=== PATIENT | male | born 1950 | race Caucasian/White ===

== ENCOUNTER 2018-05-13 08:29 | Emergency (ER) | payer MEDICARE ==
[2018-05-13] MEDS ORDERED: LIDOCAINE 2% JELLY 10ML IN APPLICATOR. MM ONE (08:45)
--- NOTE | 2018-05-13 08:55 | PHYS DOC ---
Past History Past Medical History: CAD, COPD, CVA, Hypertension Smoking: Quit Greater Than 1 Year Alcohol Use: None Drug Use: None Adult General Chief Complaint Chief Complaint: URINE CATHETER PROBLEM HPI HPI Patient is a 67-year-old male who presents with difficulty self catheterizing and pelvic pain. Patient self catheterizes due to prior history of CVA. He was able to catheterize last evening but has been unable to pass the catheter at this morning. Patient is concerned about possibility of a blood clot in the bladder obstructing the catheter since this is happened to him before. Reports the pain is a feeling of fullness. Moderate in intensity but getting worse over time. Patient denies any fevers. Denies any hematuria last night with his last catheterization attempt.[] Review of Systems Review of Systems Constitutional: Denies fever or chills [] Eyes: Denies change in visual acuity, redness, or eye pain [] HENT: Denies nasal congestion or sore throat [] Respiratory: Denies cough or shortness of breath [] Cardiovascular: No chest pain or palpitations[] GI: Denies abdominal pain, nausea, vomiting, bloody stools or diarrhea [] : See history of present illness[] Musculoskeletal: Denies back pain or joint pain [] Integument: Denies rash or skin lesions [] Neurologic: Denies headache, focal weakness or sensory changes [] Endocrine: Denies polyuria or polydipsia [] All other systems were reviewed and found to be within normal limits, except as documented in this note. Current Medications Current Medications Current Medications Medications (Trade) Dose Ordered Sig/Em Start Time Stop Time Status Last Admin Dose Admin Lidocaine HCl (Uro-Jet) 1 ac 1X ONCE 05/13/18 08:45 05/13/18 08:46 Allergies Allergies Allergies Coded Allergies Type Severity Reaction Last Updated Verified No Known Drug Allergies 05/13/18 No Physical Exam Physical Exam Constitutional: Well developed, well nourished, no acute distress, non-toxic appearance. [] HENT: Normocephalic, atraumatic, bilateral external ears normal, oropharynx moist, no oral exudates, nose normal. [] Eyes: PERRLA, EOMI, conjunctiva normal, no discharge. [] Neck: Normal range of motion, no tenderness, supple, no stridor. [] Cardiovascular:Heart rate regular rhythm, no murmur [] Lungs & Thorax: Bilateral breath sounds clear to auscultation [] Abdomen: Bowel sounds normal, soft, no tenderness, no masses, no pulsatile masses. exam: Normal male, bilateral descended testes, no blood at the meatus[] Skin: Warm, dry, no erythema, no rash. [] Back: No tenderness, no CVA tenderness. [] Extremities: No tenderness, no cyanosis, no clubbing, ROM intact, no edema. [] Neurologic: Alert and oriented X 3, right-sided weakness is noted. Patient reports that this is unchanged from his usual baseline. [] Psychologic: Affect normal, judgement normal, mood normal. [] EKG EKG [] Radiology/Procedures Radiology/Procedures [] Course & Med Decision Making Course & Med Decision Making Pertinent Labs and Imaging studies reviewed. (See chart for details) ED course: Patient arrived, was placed in bed, in tolerated exam well. Patient had a urinary catheter placed with diuresis of approximately 1 L of urine. Patient reported feeling much better after the catheter was placed. Due to what appears to be a urinary tract infection, patient was given initial dose of antibiotics and prescribed outpatient therapy. Do not believe this patient has pyelonephritis. Patient is nontoxic in appearance. We will discharge him with the urinary catheter in place to follow up with his primary care physician in the next couple of days.[] Dragon Disclaimer Dragon Disclaimer This electronic medical record was generated, in whole or in part, using a voice recognition dictation system. Departure Departure: Impression: Primary Impression: Urinary (tract) obstruction Additional Impression: Urinary tract infection Disposition: 01 HOME, SELF-CARE Condition: IMPROVED Patient Instructions: [place] Catheter Care, Adult, Urinary Retention, Acute, Male, Urinary Tract Infection Additional Instructions: Follow-up with your regular doctor in 2 days. If you do not have a regular doctor, a list of local clinics will be provided for you. Return to the ER if worsening pain, you develop a fever of more than 101, or any other concerns. Scripts Tamsulosin Hcl (FLOMAX) 0.4 Mg Cap.er.24h 0.4 MG PO HS for URINARY OBSTRUCTION for 10 Days, #10 CAP.SR Prov: WILLY LANCASTER DO 05/13/18 Cephalexin (KEFLEX) 500 Mg Capsule 500 MG PO TID for UTI for 10 Days, #30 CAP Prov: WILLY LANCASTER DO 05/13/18 Problem Qualifiers Additional Impression: Urinary tract infection Urinary tract infection type: site unspecified Hematuria presence: with hematuria Qualified Codes: N39.0 - Urinary tract infection, site not specified ; R31.9 - Hematuria, unspecified WILLY LANCASTER DO May 13, 2018 08:55
[2018-05-13 09:28] LABS: BACTERIA,URINE MANY /HPF (0-FEW); BILIRUBIN,URINE NEG (NEG); CLARITY,URINE CLOUDY; COLOR,URINE YELLOW; GLUCOSE,URINE NEG (NEG); NITRITE,URINE POS (NEG); RBC,URINE 20-40 /HPF (0-2); SQUAMOUS EPITHELIAL CELL,UR OCC /LPF; UROBILINOGEN,URINE 0.2 mg/dL (0.2 mg/dL)
[2018-05-13] MEDS ORDERED: CEPH-264 PO (09:39)
[2018-05-13] MEDS ORDERED: TAMS0.4C97 PO (09:39)
[2018-05-13] MEDS ORDERED: CEPHALEXIN 250 MG CAPSULE PO ONE (09:45)
[2018-05-13 10:39] VITALS: BP 165/101
== END 2018-05-13 11:17 | disposition home or self-care (01) ==
LOC: ER 08:29
DX: N13.9 Obstructive and reflux uropathy, unspecified (principal); N39.0 Urinary tract infection, site not specified; R31.9 Hematuria, unspecified; I25.10 Atherosclerotic heart disease of native coronary artery without angina pectoris; J44.9 Chronic obstructive pulmonary disease, unspecified; I10 Essential (primary) hypertension; Z86.73 Personal history of transient ischemic attack (TIA), and cerebral infarction without residual deficits; Z87.891 Personal history of nicotine dependence
CPT/HCPCS: 51702; 81001; 87086; 99284

== ENCOUNTER 2018-09-01 08:49 | Inpatient (IN) | payer MEDICARE ==
[~2018-09-01] VITALS: Ht 167.6 cm; Wt 120.7 kg
[~2018-09-01 08:49] MED LIST: CEPH-264 PO; TAMS0.4C97 PO
[2018-09-01] MEDS ORDERED: 0.9 % SODIUM CHLORIDE 10 ML DISP.SYRIN. IV PRN (09:00)
[2018-09-01] MEDS ORDERED: PIPERACILLIN/TAZOBACTAM 4.5 GM in IV NORMAL SALINE 50ML 50 ML IV ONE (09:00)
[2018-09-01] MEDS ORDERED: IV NORMAL SALINE 1,000ML 1,000 ML IV ONE (09:00)
[2018-09-01] MEDS ORDERED: ACETAMINOPHEN 500 MG TABLET PO ONE (09:30)
--- NOTE | 2018-09-01 09:32 | RAD ---
AP portable chest radiograph 09/01/2018 Clinical History: Cough and fever. An AP erect portable digital radiograph of the chest was obtained. No previous studies are available for comparison. The cardiac silhouette is borderline enlarged. The thoracic aorta is tortuous. Atherosclerotic calcification of the thoracic aorta is seen. No acute pulmonary infiltrate is seen. No pleural effusion or pneumothorax is noted. Degenerative changes are seen involving the thoracic spine. IMPRESSION: No acute abnormality is seen. Electronically signed by: Ronaldo Wallace MD (09/01/2018 9:29 AM) [id number]
[2018-09-01] MEDS ORDERED: IV NORMAL SALINE 50ML 50 ML ONE (09:33)
[2018-09-01] MEDS ORDERED: PIPERACILLIN/TAZOBACTAM 4.5 GM VIAL IV ONE (09:33)
[2018-09-01 09:38] LABS: BACTERIA,URINE FEW /HPF (0-FEW); BILIRUBIN,URINE NEG (NEG); CLARITY,URINE HAZY; COLOR,URINE YELLOW; GLUCOSE,URINE NEG (NEG); NITRITE,URINE NEG (NEG); RBC,URINE >40 /HPF (0-2); UROBILINOGEN,URINE 0.2 mg/dL (0.2 mg/dL)
[2018-09-01 09:46] LABS: BASO % 0 % (0-3); EOS # 1.1 x10^3/uL (0.0-0.7); EOS % 12 % (0-3); HEMATOCRIT 46.7 % (39.0-53.0); HEMOGLOBIN 15.7 g/dL (13.0-17.5); LYMPH # 0.3 x10^3/uL (1.0-4.8); LYMPH % 4 % (24-48); MEAN CORPUSCULAR HEMOGLOBIN 30 pg (25-35); MEAN CORPUSCULAR HGB CONC 34 g/dL (31-37); MEAN CORPUSCULAR VOLUME 90 fL (79-100); MONO # 0.5 x10^3/uL (0.0-1.1); MONO % 6 % (0-9); NEUT # 7.1 x10^3uL (1.8-7.7); NEUT % 78 % (31-73); PLATELET COUNT 173 x10^3/uL (140-400); RED BLOOD COUNT 5.16 x10^6/uL (4.30-5.70); RED CELL DISTRIBUTION WIDTH 14.3 % (11.5-14.5); WHITE BLOOD COUNT 9.1 x10^3/uL (4.0-11.0)
[2018-09-01 09:57] LABS: ALBUMIN 3.7 g/dL (3.4-5.0); ALBUMIN/GLOBULIN RATIO 0.9 (1.0-1.7); CALCIUM 9.1 mg/dL (8.5-10.1); GFR 74.5; POTASSIUM 3.4 mmol/L (3.5-5.1); TOTAL BILIRUBIN 0.7 mg/dL (0.2-1.0)
[2018-09-01] MEDS ORDERED: VANCOMYCIN PER PHARMACY MC ONE (10:00)
--- NOTE | 2018-09-01 10:04 | PHYS DOC ---
Past History Past Medical History: CAD, COPD, CVA, Hypertension Past Surgical History: Other Smoking: Quit Greater Than 1 Year Alcohol Use: None Drug Use: None Adult General Chief Complaint Chief Complaint: URINE CATHETER PROBLEM HPI HPI Patient is a 68-year-old male presents initially with urinary catheter problems. Patient reported discomfort with his urinary catheter so was taken out today. His home health aide was unable to replace it. He was brought here by EMS who said his heart rate was in the 60s. Patient denies any other complaints. He reported getting relief from the discomfort when the catheter was removed.[] Review of Systems Review of Systems Constitutional: Denies fever or chills [] Eyes: Denies change in visual acuity, redness, or eye pain [] HENT: Denies nasal congestion or sore throat [] Respiratory: Denies cough or shortness of breath [] Cardiovascular: No chest pain or palpitations[] GI: Denies abdominal pain, nausea, vomiting, bloody stools or diarrhea [] : Denies dysuria or hematuria, see history of present illness [] Musculoskeletal: Denies back pain or joint pain [] Integument: Denies rash or skin lesions [] Neurologic: Denies headache, focal weakness or sensory changes [] Endocrine: Denies polyuria or polydipsia [] All other systems were reviewed and found to be within normal limits, except as documented in this note. Current Medications Current Medications Current Medications Medications (Trade) Dose Ordered Sig/Em Start Time Stop Time Status Last Admin Dose Admin Acetaminophen (Tylenol) 500 mg 1X ONCE 09/01/18 09:30 09/01/18 09:31 DC 09/01/18 09:56 500 MG Piperacillin Sod/ Tazobactam Sod (Zosyn) 4.5 gm STK-MED ONCE 09/01/18 09:33 09/01/18 09:34 DC Piperacillin Sod/ Tazobactam Sod 4.5 gm/Sodium Chloride 50 ml @ 100 mls/hr 1X ONCE 09/01/18 09:00 09/01/18 09:29 DC 09/01/18 09:56 100 MLS/HR Sodium Chloride 50 ml @ As Directed STK-MED ONCE 09/01/18 09:33 09/01/18 09:34 DC Sodium Chloride (Normal Saline Flush) 10 ml QSHIFT PRN 09/01/18 09:00 Vancomycin HCl (Vanco Per Pharmacy) 1 each 1X ONCE 09/01/18 10:00 09/01/18 10:01 UNV Allergies Allergies Allergies Coded Allergies Type Severity Reaction Last Updated Verified No Known Drug Allergies 05/13/18 No Physical Exam Physical Exam Constitutional: Well developed, well nourished, no acute distress, non-toxic appearance. [] HENT: Normocephalic, atraumatic, bilateral external ears normal, oropharynx moist, no oral exudates, nose normal. [] Eyes: Nonresponsive right pupil, patient reports that this has been since his previous stroke, EOMI, conjunctiva normal, no discharge. [] Neck: Normal range of motion, no tenderness, supple, no stridor. [] Cardiovascular:Heart rate is tachycardic with a regular rhythm, no murmur [] Lungs & Thorax: Bilateral breath sounds clear to auscultation [] Abdomen: Bowel sounds normal, soft, no tenderness, no masses, no pulsatile masses. [] Skin: Skin breakdown present on his posterior thighs and in the groin, mild, no testicular swelling, no evidence of 40 nasal gangrene. [] Back: No tenderness, no CVA tenderness. [] Extremities: No tenderness, no cyanosis, no clubbing, ROM intact, no edema. [] Neurologic: Alert and oriented X 3, right upper extremity and lower extremity weakness consistent with his previous stroke history. [] Psychologic: Affect normal, judgement normal, mood normal. [] Current Patient Data Lab Results Laboratory Tests Test 09/01/18 09:00 09/01/18 09:27 Urine Collection Type U cath Urine Color Yellow Urine Clarity Hazy Urine pH 7.0 Urine Specific [place] 1.020 Urine Protein 100 mg/dl (NEG-TRACE) Urine Glucose (UA) Neg mg/dL (NEG) Urine Ketones (Stick) Neg mg/dL (NEG) Urine Blood Small (NEG) Urine Nitrite Neg (NEG) Urine Bilirubin Neg (NEG) Urine Urobilinogen Dipstick 0.2 mg/dL (0.2 mg/dL) Urine Leukocyte Esterase Neg (NEG) Urine RBC >40 /HPF (0-2) Urine WBC 1-4 /HPF (0-4) Urine Squamous Epithelial Cells None /LPF Urine Bacteria Few /HPF (0-FEW) White Blood Count 9.1 x10^3/uL (4.0-11.0) Red Blood Count 5.16 x10^6/uL (4.30-5.70) Hemoglobin 15.7 g/dL (13.0-17.5) Hematocrit 46.7 % (39.0-53.0) Mean Corpuscular Volume 90 fL (79-100) Mean Corpuscular Hemoglobin 30 pg (25-35) Mean Corpuscular Hemoglobin Concent 34 g/dL (31-37) Red Cell Distribution Width 14.3 % (11.5-14.5) Platelet Count 173 x10^3/uL (140-400) Neutrophils (%) (Auto) 78 % (31-73) H Lymphocytes (%) (Auto) 4 % (24-48) L Monocytes (%) (Auto) 6 % (0-9) Eosinophils (%) (Auto) 12 % (0-3) H Basophils (%) (Auto) 0 % (0-3) Neutrophils # (Auto) 7.1 x10^3uL (1.8-7.7) Lymphocytes # (Auto) 0.3 x10^3/uL (1.0-4.8) L Monocytes # (Auto) 0.5 x10^3/uL (0.0-1.1) Eosinophils # (Auto) 1.1 x10^3/uL (0.0-0.7) H Basophils # (Auto) 0.0 x10^3/uL (0.0-0.2) Prothrombin Time 11.6 SEC (9.4-11.4) H Prothrombin Time INR 1.2 (0.9-1.1) H PTT 32 SEC (23-33) EKG EKG EKG shows a sinus tachycardia at 112 bpm, left axis at -83, QTC 479 ms, nonspecific intraventricular block is present. No old EKG is available for comparison. Interpreted by me at 0911[] Radiology/Procedures Radiology/Procedures AP portable chest radiograph 09/01/2018 Clinical History: Cough and fever. An AP erect portable digital radiograph of the chest was obtained. No previous studies are available for comparison. The cardiac silhouette is borderline enlarged. The thoracic aorta is tortuous. Atherosclerotic calcification of the thoracic aorta is seen. No acute pulmonary infiltrate is seen. No pleural effusion or pneumothorax is noted. Degenerative changes are seen involving the thoracic spine. IMPRESSION: No acute abnormality is seen.[] Course & Med Decision Making Course & Med Decision Making Pertinent Labs and Imaging studies reviewed. (See chart for details) ED course: Patient arrived, was placed in bed, in tolerated exam well. He was noted to be febrile. Sepsis alert was started. Patient's temperature and heart rate improved with antipyretics and IV fluids. Elevated troponin was noted. He was given aspirin for this. Consultation was made with the hospitalist for admission and he graciously admitted. Additional consultation was made with cardiology who believe that this is more of a stress reaction for the troponin elevation rather than an acute coronary syndrome. Medical decision making: Patient with an acute febrile illness. No evidence of pneumonia, no Annette's gangrene. Possible skin source given his skin breakdown but no significant decubitus ulcer. No evidence of this being pyelonephritis.[] Dragon Disclaimer Dragon Disclaimer This electronic medical record was generated, in whole or in part, using a voice recognition dictation system. Departure Departure: Impression: Primary Impression: Acute febrile illness Additional Impressions: Elevated troponin level Elevated brain natriuretic peptide (BNP) level History of CVA (cerebrovascular accident) without residual deficits Skin breakdown Disposition: ADMITTED INPATIENT Admitting Physician: Hung Martin Condition: IMPROVED Referrals: PCP,NO (PCP) Problem Qualifiers WILLY LANCASTER DO Sep 01, 2018 10:04
[2018-09-01] MEDS ORDERED: VANCOMYCIN 1 GM VIAL. ONE ×2 (10:30→10:31)
[2018-09-01] MEDS ORDERED: VANCOMYCIN 2 GM in IV NORMAL SALINE 500ML 500 ML IV ONE (10:30)
[2018-09-01] MEDS ORDERED: ASPIRIN 81 MG TAB.CHEW PO ONE (10:30)
[2018-09-01] MEDS ORDERED: IV NORMAL SALINE 500ML 500 ML ONE (10:30)
[2018-09-01] MEDS ORDERED: IV NORMAL SALINE 1,000ML 1,000 ML IV SCH (11:05)
[2018-09-01] MEDS ORDERED: ONDANSETRON PF 4 MG/2 ML VIAL. IV PRN (11:15)
[2018-09-01 13:43] VITALS: BP 173/92
[2018-09-01 14:37] VITALS: BP 165/75
--- NOTE | 2018-09-01 16:22 | CARD ---
MR#: [id number] Date of Study: 09/01/2018 Ordering Physician: WILYL LANCASTER, Referring Physician: PINO SANTIAGO, Tech: Zofia Kumar APPROVED REPORT EXAM: Two-dimensional and M-mode echocardiogram with Doppler and color Doppler. Other Information Quality : FairHR: 75bpm Technically limited study due to body habitus and COPD INDICATION CVA/TIA CAD Elevated Troponin RISK FACTORS Hypertension Hyperlipidemia 2D DIMENSIONS RVDd3.2 (2.9-3.5cm)Left Atrium(2D)4.0 (1.6-4.0cm) IVSd1.3 (0.7-1.1cm)Aortic Root(2D)3.3 (2.0-3.7cm) LVDd6.1 (3.9-5.9cm)LVOT Diameter2.1 (1.8-2.4cm) PWd1.4 (0.7-1.1cm)LVDs3.5 (2.5-4.0cm) FS (%) 42.0 %SV134.9 ml Aortic Valve AoV Peak Bob.99.1cm/sAoV VTI21.8cm AO Peak GR.3.9mmHgLVOT Peak Bob.103.2cm/s LVOT VTI 23.18cmAO Mean GR.3mmHg UCHE (VMAX)3.06qg5YJZ (VTI)3.55cm2 Pulmonary Valve PV Peak Knnyhicb852.0cm/sPV Peak Grad.5mmHg Pulmonary Vein D2 Nnylepcj02.8cm/s LEFT VENTRICLE The left ventricle is normal size. There is mild to moderate concentric left ventricular hypertrophy. The left ventricular systolic function is normal. The Ejection Fraction is 50-55%. Transmitral Doppl er flow pattern is Grade I-abnormal relaxation pattern. RIGHT VENTRICLE The right ventricle is normal size. There is normal right ventricular wall thickness. The right ventr icular systolic function is normal. ATRIA The left atrium is borderline dilated. The right atrium is borderline dilated. The interatrial septum is intact with no evidence for an atrial septal defect or patent foramen ovale as noted on 2-D or Do ppler imaging. AORTIC VALVE The aortic valve is thickened but opens well. Doppler and Color Flow revealed no significant aortic r egurgitation. There is no significant aortic valvular stenosis. MITRAL VALVE The mitral valve is normal in structure and function. There is no evidence of mitral valve prolapse. There is no mitral valve stenosis. Doppler and Color Flow revealed trace mitral regurgitation. TRICUSPID VALVE The tricuspid valve is normal in structure and function. Doppler and Color Flow revealed no tricuspid valve regurgitation noted. There is no tricuspid valve stenosis. PULMONIC VALVE The pulmonic valve is not well visualized. Doppler and Color Flow revealed no pulmonic valvular regur gitation. GREAT VESSELS The aortic root is normal in size. The IVC was not well visualized. PERICARDIAL EFFUSION There is no evidence of significant pericardial effusion. Critical Notification Critical Value: No <Conclusion> Technically difficult study. The left ventricular systolic function is normal. The Ejection Fraction is 50-55%. Doppler and Color Flow revealed trace mitral regurgitation. There is no evidence of significant pericardial effusion. Signed by : Red Ureña, Electronically Approved : 09/01/2018 16:21:44
--- NOTE | 2018-09-01 16:31 | CONS ---
DATE OF CONSULTATION: 09/01/2018 REASON FOR CONSULTATION: Elevated troponin. HISTORY OF PRESENT ILLNESS: The patient is a 68-year-old man with past medical history as noted below, who apparently was brought in by his family due to pain related to his urinary catheter. He apparently has urinary retention and usually does a straight catheter by himself, but then had difficulty earlier today and because of this, they brought him in. Upon initial arrival to the hospital, he was noted to be febrile with a temperature of 101.5 and mildly hypertensive and tachycardic, he was admitted for further evaluation and treatment. In speaking with the patient, he also reported some chest discomfort during this time, but denied any dyspnea. At baseline, he apparently is able to make his own meals, but does have limitations with activity. He has been struggling since he had a stroke approximately a year ago where he was evaluated at [facility]. It is difficult due to the patient's stroke and has expressive aphasia to obtain a history from him, but based on review of the chart, talking to the nurses and talking with the patient, it appears that his baseline functional capacity is quite limited. PAST MEDICAL HISTORY: 1. Coronary artery disease. 2. Obstructive sleep apnea, currently not on CPAP. 3. Prior cerebrovascular accident. 4. Hypertension. SOCIAL HISTORY: The patient denies any alcohol, tobacco or illicit drug use. He apparently has not been on any medications over the last several months. FAMILY HISTORY: Noncontributory. ALLERGIES: No known drug allergies. CURRENT CARDIOVASCULAR MEDICATIONS: None. REVIEW OF SYSTEMS: Unable to be obtained due to the patient's expressive aphasia. PHYSICAL EXAMINATION: VITAL SIGNS: Afebrile, 76, 22, 165/75, 98% on 4 liters via nasal cannula. GENERAL: He is alert and oriented to place and time and person. HEART: Regular rate and rhythm without any obvious murmurs, rubs or gallops. LUNGS: Notable for decreased breath sounds at the bases. ABDOMEN: Soft, nontender, nondistended. EXTREMITIES: No obvious clubbing, cyanosis or edema. Both lower extremities are cool to touch. Radial pulses are 1+. Femoral pulses are 1+. Pedal pulses are nonpalpable. DIAGNOSTIC STUDIES: Notable for a normal creatinine. Troponin is elevated at 0.306. BNP is elevated at 1280. Chest x-ray is grossly unremarkable. Echocardiogram is currently pending. EKG demonstrates sinus tachycardia with a right bundle branch block and a left anterior fascicular block with possible high lateral Q-waves. Unfortunately, due to the patient's anterior bundle branch block and changes, it is difficult to rule out any acute ischemic pathology. IMPRESSION: 1. Elevated troponin in the setting of multiple cardiovascular comorbidities with a prior history of percutaneous coronary intervention suggestive of a non-ST elevation myocardial infarction, likely type 2, but cannot rule out ischemic insult. 2. Hypertension. 3. Prior cerebrovascular accident. 4. Obstructive sleep apnea. 5. Possible infectious pathology with elevated temperature and possible urinary source. RECOMMENDATIONS: 1. We will repeat his EKG and ensure that there is no progressive ischemic changes. 2. Check ABG and initiate on aspirin, Plavix and statin therapy. We will also start him on blood pressure medications. Depending on his echocardiogram, repeat EKG, may consider additional anticoagulation. Supportive care for now. Thank you for this consultation. ARIES MACKEY MD DR: ESTEFANI/edwin JOB#: [id number] / [id number]
[2018-09-01] MEDS ORDERED: VANCOMYCIN PER PHARMACY MC PRN (17:15)
[2018-09-01] MEDS: PIPERACILLIN/TAZOBACTAM 3.375 GM in IV NORMAL SALINE 50ML 50 ML IV SCH (17:59)
[2018-09-01 18:04] LABS: BGAS PH 7.43 (7.35-7.46)
[2018-09-01 18:34] VITALS: BP 171/105
[2018-09-01] MEDS: ACETAMINOPHEN 325 MG TABLET PO PRN (18:37)
--- NOTE | 2018-09-01 18:54 | HP ---
ADMIT DATE: 09/01/2018 HISTORY OF PRESENT ILLNESS: The patient is a 68-year-old male patient who was brought by his family as he has initially presented with the problem in his urinary catheter normally he self-catheterizes, but apparently he has discomfort with any catheter, so was taken out today and his home health aide was unable to replace it and he was brought to the Emergency Room by the emergency medical service personnel. His heart rate was in the 60s. He denied any other complaint and reportedly getting relief from the discomfort when the catheter was removed; however, on arrival to the Emergency Room, he apparently was found to be febrile, tachycardic and further lab work showed that he has hypokalemia and troponin I was elevated at 0.217, although he denied any chest pain. He apparently to the ER physician, he reported some chest discomfort to the ground wirer. His urinalysis showed the urine was hazy and has 1-4 wbc's, few bacteria and he was admitted with acute febrile illness. Elevated troponin. Elevated beta natriuretic peptide. The patient; however, left middle cerebral artery territory infarct, right-sided hemiplegia and expressive aphasia, was also skin breakdown. PAST MEDICAL HISTORY: Significant for hypertension, hyperlipidemia, coronary artery disease, status post PCI stent deployment x 2 in 2010. He has left middle cerebral artery territory infarct with right-sided hemiplegia or aphasia on 11/2016. He is known to have benign prostatic hypertrophy and obstructive sleep apnea, but he is not using his CPAP. PAST SURGICAL HISTORY: Significant for PCI with stent deployment and tonsillectomy. ALLERGIES: He has no known drug allergies. MEDICATIONS: He apparently stopped taking all his medication from 04/2018. FAMILY HISTORY: He has 1 brother and 2 sisters younger and healthy. His father at age of 77 because of myocardial infarction. Mother at the age of 92. SOCIAL HISTORY: He is , has 2 sons. He lives with his son and his [id number]. He is a former smoker. He quit one and half years ago. He smoked a pack a day for almost 50 years. He drinks alcohol very occasionally. He does not use any drugs. 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 REVIEW OF SYSTEMS: The patient apparently has a divergent squint, but denied any glaucoma or macular degeneration. Denied any earache, tinnitus or sensorineural deafness. Denied any nosebleeds, stuffy nose or postnasal drip. Denied any sore throat, sore tongue, toothache, hoarseness of voice or difficulty swallowing. Denied any nausea, vomiting, diarrhea or constipation. Denied any hematemesis, melena or hematochezia. He has apparently enlarged prostate and he is self-catheterize. He did complain apparently of chest pain. Denied any shortness of breath, orthopnea or paroxysmal nocturnal dyspnea. Denied any cough, phlegm or hemoptysis. Denied any chills, rigors or fever. On arrival to the Emergency Room, he looked somewhat tachypneic, tachycardic and febrile. PHYSICAL EXAMINATION: VITAL SIGNS: His heart rate was 126, blood pressure was 135/108, temperature was 101.5, respiratory rate was 24 and oxygen saturation was 90% on 4 liters of oxygen. HEAD, EYES, EARS, NOSE AND THROAT: Showed he is normocephalic, atraumatic. NECK: Supple. HEART: Showed normal first and second heart sounds with no gallop, rub or murmur. CHEST: Clear to auscultation. No crepitation or rhonchi. ABDOMEN: Distended, soft and nontender. No guarding or rigidity. No organomegaly. All hernial orifices intact. Bowel sounds normal. NEUROLOGIC: He has right-sided hemiplegia and expressive aphasia. He apparently has skin breakdown on his lower back. LABORATORY DATA: His lab work on arrival showed a white cell count of 9100, hemoglobin 15.7, hematocrit 46.7, MCV 90 and platelet count of 173,000 with normal manual differential, although he has actually a significant eosinophilia. His serum sodium was 138, potassium 3.4, chloride 100, bicarbonate 27, anion gap of 11, BUN 17, creatinine 1, estimated GFR was 74 mL per minute, his glucose 120, lactic acid 1.6, calcium was 9.1. Total bilirubin, AST, ALT, alkaline phosphatase were normal. Troponin I was 0.217. His total protein was 8, albumin 3.7 and lipase was 72. His prothrombin time was 11.6, INR 1.2, APTT was 32. His urinalysis showed the urine was yellow, hazy with a pH of 7, specific gravity of 1020. There was large amount of protein. The urine was negative for glucose, negative for ketones, small amount of blood, negative for nitrite, bilirubin and leukocyte esterase, more than 40 rbc's, 1-4 wbc's, and very few bacteria. His chest x-ray showed that the cardiac silhouette is borderline enlarged. The thoracic aorta is tortuous, atherosclerotic calcification of the thoracic aorta is seen. No acute pulmonary infiltrate is seen. No pleural effusion or pneumothorax noted. Has degenerative changes are seen involving the thoracic spine. ASSESSMENT: The patient was admitted to obviously do 2 more sets of cardiac enzyme, consult the cardiology team. He was also started empirically on vancomycin and Zosyn given that he was febrile, although did not have any obvious source of infection. His other medical problems include hypertension, hyperlipidemia, coronary artery disease, status post percutaneous coronary intervention with stent deployment, left middle cerebral artery territory infarct with right-sided hemiplegia and benign prostatic hypertrophy, he was a former smoker, quit smoking about 1-1/2 years ago after smoking a pack a day for almost 50 years. PLAN: To continue with the IV antibiotic. We have already sent urine and blood for culture and sensitivity. We will do 2 more sets of cardiac enzyme. We will check his fasting lipid profile and will request records from [facility] and also contact the [facility] to know what medication he was on before. PINO SANTIAGO MD DR: SAÚL/edwin JOB#: [id number] / [id number]
[2018-09-01] MEDS ORDERED: ATOR40TA59 PO (19:13)
[2018-09-01] MEDS ORDERED: LISI-338 PO (19:13)
[2018-09-01] MEDS ORDERED: ASPI-612 PO (19:13)
[2018-09-01] MEDS ORDERED: CARV3.1230 PO (19:13)
[2018-09-01] MEDS ORDERED: ENOXAPARIN 40 MG/0.4 ML SYRINGE. SQ SCH (20:00)
[2018-09-01] MEDS ORDERED: POTASSIUM CHLORIDE 20 MEQ TABLET.ER. PO ONE (20:00)
[2018-09-01] MEDS: ATORVASTATIN CALCIUM 20 MG TABLET PO SCH (20:54)
[2018-09-01] MEDS: CARVEDILOL 3.125 MG TABLET PO SCH (20:54)
[2018-09-01] MEDS: LACTOBACILLUS RHAMNOSUS GG 1 CAPSULE. PO SCH (20:55)
[2018-09-01] MEDS: ENOXAPARIN 40 MG/0.4 ML SYRINGE. SQ SCH (20:57)
[2018-09-01 22:13] VITALS: BP 144/75
[2018-09-01] MEDS: VANCOMYCIN 1.75 GM in IV NORMAL SALINE 500ML 500 ML IV SCH (23:28)
[2018-09-01 23:44] VITALS: BP 144/75
--- NOTE | 2018-09-02 00:49 | RAD ---
Chest AP portable at 1721: Reason for examination: Increasing shortness of breath. Comparison is made to previous study dated 09/01/2018 at 09:00. The heart size is normal. Mediastinum is unremarkable. Lung presley show some linear density consistent with atelectasis in the right lower lobe. No acute bony abnormalities are seen. Impression: Linear densities consistent with atelectasis in the right lower lobe. Electronically signed by: Chandrika Mckeon MD (09/02/2018 12:46 AM) [facility]
[2018-09-02 01:27] VITALS: BP 145/77
[2018-09-02] MEDS: PIPERACILLIN/TAZOBACTAM 3.375 GM in IV NORMAL SALINE 50ML 50 ML IV SCH ×3 (01:59→16:52)
[2018-09-02] MEDS: ACETAMINOPHEN 325 MG TABLET PO PRN (05:55)
--- NOTE | 2018-09-02 05:57 | PN ---
DATE: 09/01/2018 SUBJECTIVE: The patient was admitted yesterday with initially problem with his discomfort from his urinary bladder and it was removed, however, in the Emergency Room, he was found to be febrile and his troponins were elevated, so he was admitted for 2 more sets of cardiac enzyme and to consult the cardiology team. When I saw him this afternoon, he was clearly continued to be tachypneic and has recurrent episode of cough, but denied any chest pain. PHYSICAL EXAMINATION: GENERAL: When I examined him, he looked slightly tachypneic, but there is no pallor, jaundice, cyanosis, or thyromegaly. No jugular venous distension. No lower limb edema. VITAL SIGNS: His heart rate was 76, blood pressure was 165/76, temperature was 98.8, respiratory rate was 22 and oxygen saturation was 90% requiring 4 liters of oxygen. HEAD, EYES, EARS, NOSE AND THROAT: Showed normocephalic, atraumatic. NECK: Supple. HEART: Showed normal first and second heart sounds. No gallop, rub or murmur. CHEST: Clear to auscultation. No crepitation or rhonchi. ABDOMEN: Distended, soft, nontender. NEUROLOGIC: He was awake, alert, responding appropriately. He has definitely right-sided hemiplegia and expressive aphasia. LABORATORY DATA: His lab work this morning showed that his troponin has risen further to 0.306. ASSESSMENT: The patient had received 2 liters of fluid and he seemed to be more short of breath and therefore, my plan is to continue with IV antibiotic in the form of vancomycin and Zosyn. I will repeat another chest x-ray and also get his D-dimer. We will start him on Lovenox at least for deep venous thrombosis prophylaxis and do one more set of troponin and check his fasting lipid profile and also obtain records from [facility]. We will also check his arterial blood gases. PINO SANTIAGO MD DR: SAÚL/edwin JOB#: [id number] / [id number]
[2018-09-02 06:29] VITALS: BP 132/72
[2018-09-02 07:01] LABS: BASO % 0 % (0-3); EOS # 0.5 x10^3/uL (0.0-0.7); EOS % 8 % (0-3); HEMOGLOBIN 15.3 g/dL (13.0-17.5); LYMPH # 0.4 x10^3/uL (1.0-4.8); LYMPH % 7 % (24-48); MEAN CORPUSCULAR HEMOGLOBIN 30 pg (25-35); MEAN CORPUSCULAR HGB CONC 33 g/dL (31-37); MEAN CORPUSCULAR VOLUME 91 fL (79-100); MONO # 0.3 x10^3/uL (0.0-1.1); MONO % 5 % (0-9); NEUT # 4.7 x10^3uL (1.8-7.7); NEUT % 80 % (31-73); PLATELET COUNT 161 x10^3/uL (140-400); RED BLOOD COUNT 5.05 x10^6/uL (4.30-5.70); RED CELL DISTRIBUTION WIDTH 14.5 % (11.5-14.5); WHITE BLOOD COUNT 5.9 x10^3/uL (4.0-11.0)
[2018-09-02 07:23] LABS: ALBUMIN 2.8 g/dL (3.4-5.0); ALBUMIN/GLOBULIN RATIO 0.8 (1.0-1.7); CALCIUM 8.4 mg/dL (8.5-10.1); CREATININE 1.2 mg/dL (0.7-1.3); GFR 60.4; TOTAL PROTEIN 6.5 g/dL (6.4-8.2)
--- NOTE | 2018-09-02 07:46 | EKG ---
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
[2018-09-02] MEDS: LISINOPRIL 5 MG TABLET. PO SCH (08:00)
[2018-09-02] MEDS: ASPIRIN ENTERIC COATED 81 MG TABLET.DR. PO SCH (08:01)
[2018-09-02] MEDS: LACTOBACILLUS RHAMNOSUS GG 1 CAPSULE. PO SCH ×2 (08:01→20:04)
[2018-09-02] MEDS: CARVEDILOL 3.125 MG TABLET PO SCH ×2 (08:01→16:51)
--- NOTE | 2018-09-02 08:49 | PDOC ---
CARDIO Progress Notes Date & Time Date of Service DATE: 09/02/18 TIME: 08:44 Time of Evaluation 08:44 Subjective Notes No chest pain overnight. Feeling better overall. Having occasional diarrhea Vitals Vitals Vital Signs Date Time Temp Pulse Resp B/P (MAP) Pulse Ox O2 Delivery O2 Flow Rate FiO2 09/02/18 08:01 81 132/72 09/02/18 06:29 101.1 18 91 09/02/18 01:27 Nasal Cannula 09/01/18 20:00 2.0 Weight Weight [ ] Input and Output I.O. Intake and Output 09/02/18 07:00 Intake Total 3153.42 ml Output Total 1200 ml Balance 1953.42 ml Intake Oral 725 ml IV Total 2428.42 ml Output Urine Total 1200 ml Laboratory Labs Laboratory Tests Test 09/01/18 09:00 09/01/18 09:27 09/01/18 14:13 09/01/18 17:20 Urine Collection Type U cath Urine Color Yellow Urine Clarity Hazy Urine pH 7.0 Urine Specific [place] 1.020 Urine Protein 100 mg/dl (NEG-TRACE) Urine Glucose (UA) Neg mg/dL (NEG) Urine Ketones (Stick) Neg mg/dL (NEG) Urine Blood Small (NEG) Urine Nitrite Neg (NEG) Urine Bilirubin Neg (NEG) Urine Urobilinogen Dipstick 0.2 mg/dL (0.2 mg/dL) Urine Leukocyte Esterase Neg (NEG) Urine RBC >40 /HPF (0-2) Urine WBC 1-4 /HPF (0-4) Urine Squamous Epithelial Cells None /LPF Urine Bacteria Few /HPF (0-FEW) White Blood Count 9.1 x10^3/uL (4.0-11.0) Red Blood Count 5.16 x10^6/uL (4.30-5.70) Hemoglobin 15.7 g/dL (13.0-17.5) Hematocrit 46.7 % (39.0-53.0) Mean Corpuscular Volume 90 fL (79-100) Mean Corpuscular Hemoglobin 30 pg (25-35) Mean Corpuscular Hemoglobin Concent 34 g/dL (31-37) Red Cell Distribution Width 14.3 % (11.5-14.5) Platelet Count 173 x10^3/uL (140-400) Neutrophils (%) (Auto) 78 % (31-73) Lymphocytes (%) (Auto) 4 % (24-48) Monocytes (%) (Auto) 6 % (0-9) Eosinophils (%) (Auto) 12 % (0-3) Basophils (%) (Auto) 0 % (0-3) Neutrophils # (Auto) 7.1 x10^3uL (1.8-7.7) Lymphocytes # (Auto) 0.3 x10^3/uL (1.0-4.8) Monocytes # (Auto) 0.5 x10^3/uL (0.0-1.1) Eosinophils # (Auto) 1.1 x10^3/uL (0.0-0.7) Basophils # (Auto) 0.0 x10^3/uL (0.0-0.2) Prothrombin Time 11.6 SEC (9.4-11.4) Prothromb Time International Ratio 1.2 (0.9-1.1) Activated Partial Thromboplast Time 32 SEC (23-33) Sodium Level 138 mmol/L (136-145) Potassium Level 3.4 mmol/L (3.5-5.1) Chloride Level 100 mmol/L (98-107) Carbon Dioxide Level 27 mmol/L (21-32) Anion Gap 11 (6-14) Blood Urea Nitrogen 17 mg/dL (8-26) Creatinine 1.0 mg/dL (0.7-1.3) Estimated GFR (Cockcroft-Gault) 74.5 BUN/Creatinine Ratio 17 (6-20) Glucose Level 120 mg/dL (70-99) Lactic Acid Level 1.6 mmol/L (0.4-2.0) Calcium Level 9.1 mg/dL (8.5-10.1) Total Bilirubin 0.7 mg/dL (0.2-1.0) Aspartate Amino Transf (AST/SGOT) 14 U/L (15-37) Alanine Aminotransferase (ALT/SGPT) 23 U/L (16-63) Alkaline Phosphatase 91 U/L (46-116) Troponin I Quantitative 0.217 ng/mL (0-0.055) 0.306 ng/mL (0-0.055) WS-Dzq-C-Type Natriuretic Peptide 1280 pg/mL (0-124) Total Protein 8.0 g/dL (6.4-8.2) Albumin 3.7 g/dL (3.4-5.0) Albumin/Globulin Ratio 0.9 (1.0-1.7) Lipase 72 U/L (73-393) Blood Gas pH 7.43 (7.35-7.46) Blood Gas PCO2 33 mmHg (35-46) Blood Gas PO2 87 mmHg (80-100) Blood Gas HCO3 22 mmol/L (21-28) Arterial Bld O2 Saturation (Calc) 97 % (92-99) FiO2 36 % Test 09/01/18 17:30 09/02/18 06:40 D-Dimer (Jacey) 2.11 mg/L (0.00-0.50) Troponin I Quantitative 0.248 ng/mL (0-0.055) White Blood Count 5.9 x10^3/uL (4.0-11.0) Red Blood Count 5.05 x10^6/uL (4.30-5.70) Hemoglobin 15.3 g/dL (13.0-17.5) Hematocrit 46.0 % (39.0-53.0) Mean Corpuscular Volume 91 fL (79-100) Mean Corpuscular Hemoglobin 30 pg (25-35) Mean Corpuscular Hemoglobin Concent 33 g/dL (31-37) Red Cell Distribution Width 14.5 % (11.5-14.5) Platelet Count 161 x10^3/uL (140-400) Neutrophils (%) (Auto) 80 % (31-73) Lymphocytes (%) (Auto) 7 % (24-48) Monocytes (%) (Auto) 5 % (0-9) Eosinophils (%) (Auto) 8 % (0-3) Basophils (%) (Auto) 0 % (0-3) Neutrophils # (Auto) 4.7 x10^3uL (1.8-7.7) Lymphocytes # (Auto) 0.4 x10^3/uL (1.0-4.8) Monocytes # (Auto) 0.3 x10^3/uL (0.0-1.1) Eosinophils # (Auto) 0.5 x10^3/uL (0.0-0.7) Basophils # (Auto) 0.0 x10^3/uL (0.0-0.2) Sodium Level 136 mmol/L (136-145) Potassium Level 4.0 mmol/L (3.5-5.1) Chloride Level 102 mmol/L (98-107) Carbon Dioxide Level 25 mmol/L (21-32) Anion Gap 9 (6-14) Blood Urea Nitrogen 17 mg/dL (8-26) Creatinine 1.2 mg/dL (0.7-1.3) Estimated GFR (Cockcroft-Gault) 60.4 BUN/Creatinine Ratio 14 (6-20) Glucose Level 124 mg/dL (70-99) Calcium Level 8.4 mg/dL (8.5-10.1) Total Bilirubin 1.0 mg/dL (0.2-1.0) Aspartate Amino Transf (AST/SGOT) 15 U/L (15-37) Alanine Aminotransferase (ALT/SGPT) 20 U/L (16-63) Alkaline Phosphatase 66 U/L (46-116) Total Protein 6.5 g/dL (6.4-8.2) Albumin 2.8 g/dL (3.4-5.0) Albumin/Globulin Ratio 0.8 (1.0-1.7) Physical Exams HEENT: Neck Supple W Full Motion Chest: Symmetric Lungs: Clear to Auscultation Heart: S1S2, RRR Abdomen: Soft N/T Extremities: No Edema, Other (right sided paralysis ) Neurology: alert, oriented, follow commands, other (expressive aphasia ) Assessment Assessment 1. Elevated troponin; peak 0.3. Echo with preserved LV systolic function with an EF of 50-55%. Most probably type II, demand ischemia 2. CAD s/p PCI/stent in 2009. Awaiting records from [facility] 3. Accelerated hypertension; now controlled 4. Hyperlipidemia 5. GRISELDA; untreated 6. Prior CVA 7. Fevers, diarrhea Recommendations Repeat EKG now Continue secondary prevention; ASA, Plavix, statin, BB, and ACEi Nurse reports patient will not be noncompliant with meds post-discharge stating "I'm not taking that crap". ASA, Plavix, and statin was prescribed earlier this year, but were never picked up. Discussed importance of medical compliance given history/risk factors, but difficult to elicit whether he will be compliant or not due to expressive aphasia. Recommendations medical management for now given preserved LV systolic function, lack of symptoms, limited functional ability, and concerns with medical compliance. ROYAL EDLUNA APRN Sep 02, 2018 08:49
--- NOTE | 2018-09-02 09:59 | EKG ---
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
[2018-09-02] MEDS: CLOPIDOGREL BISULFATE 75 MG TABLET PO SCH (10:07)
[2018-09-02] MEDS: VANCOMYCIN 1.75 GM in IV NORMAL SALINE 500ML 500 ML IV SCH ×2 (10:07→23:10)
[2018-09-02 11:01] VITALS: BP 97/62
[2018-09-02 14:48] VITALS: BP 114/67
[2018-09-02] MEDS ORDERED: ACETAMINOPHEN 325 MG TABLET PO PRN (19:45)
[2018-09-02] MEDS: ENOXAPARIN 40 MG/0.4 ML SYRINGE. SQ SCH (20:03)
[2018-09-02] MEDS: ATORVASTATIN CALCIUM 20 MG TABLET PO SCH (20:04)
[2018-09-02 20:29] VITALS: BP 138/72
[2018-09-02 23:39] VITALS: BP 119/65
--- NOTE | 2018-09-03 01:25 | PN ---
DATE: 09/02/2018 SUBJECTIVE: The patient is resting, slightly propped up in bed comfortably in no apparent distress. He unfortunately continued to be febrile. His temperature this morning went up to 101.1. We did panculture him and he continues to be on IV Zosyn and vancomycin. So far, his blood cultures are negative. He was apparently evaluated by the Cardiology team and although his cardiac enzymes are elevated, the patient was not willing to take any medication and therefore there was no point in pursuing any further ischemic workup. PHYSICAL EXAMINATION: GENERAL: When I examined him this afternoon, he looked well and was clearly in no apparent respiratory distress. There was no pallor, jaundice, cyanosis or thyromegaly. No jugular venous distension. No lower limb edema. VITAL SIGNS: His heart rate was 57, blood pressure was 97/62, temperature was 97.5, respiratory rate 20 and oxygen saturation was 96% on room air. HEAD, EYES, EARS, NOSE AND THROAT: Normocephalic, atraumatic. NECK: Supple. HEART: Showed normal first and second heart sounds. No gallop, rub or murmur. CHEST: Showed central trachea, equal bilateral expansion, air entry, vesicular sounds with crepitation on the right side posteriorly. I could not appreciate any rhonchi. ABDOMEN: Slightly distended, soft, nontender. NEUROLOGIC: He was awake, alert, responding appropriately, although has expressive aphasia. 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 He has right-sided hemiplegia. His intake over the last 24 hours and output are incompletely recorded. LABORATORY DATA: Her lab work this morning showed a white cell count 5900, hemoglobin 15, hematocrit 46, MCV 91 and platelet count of 161,000 with normal manual differential. His chemistry showed a serum sodium 136, potassium 4, chloride 102, bicarbonate 25, anion gap of 9, BUN 17, creatinine 1.2. Estimated GFR was 60 mL per minute. His glucose 124, calcium was 8.4. Total bilirubin, AST, ALT, alkaline phosphatase were normal. Total protein was 6.5, albumin was 2.8. His blood gases showed a pH of 7.43, a pCO2 of 33, pO2 of 87, bicarbonate 22, oxygen saturation was 97% on FiO2 of 36%. Urinalysis showed more than 40 rbc's, 1-4 wbc's, negative for nitrite. There are very few bacteria. ASSESSMENT: 1. Febrile illness. I do not have any clear cut evidence of a source of infection. So far, the blood cultures are negative. His D-dimer was elevated at 2.11. 2. Elevated troponin. The patient has an echocardiogram, which showed preserved left ventricular systolic function, ejection fraction of 50-55%, likely demand ischemia, coronary artery disease, status post PCI with stent deployment in 2009. 3. Accelerated hypertension, well controlled. 4. Hyperlipidemia. 5. Obstructive sleep apnea. The patient has left middle cerebral artery territory infarct, left-sided hemiplegia. The patient continued to have fever. Currently, the patient has multiple episodes of loose bowel movement. I will send stool for Clostridium difficile and if it is positive, obviously that will explain the source of fever and we can switch him to oral vancomycin if it became positive. PINO SANTIAGO MD DR: SAÚL/edwin JOB#: [id number] / [id number]
[2018-09-03] MEDS: PIPERACILLIN/TAZOBACTAM 3.375 GM in IV NORMAL SALINE 50ML 50 ML IV SCH ×3 (01:29→16:09)
[2018-09-03 05:26] VITALS: BP 131/72
[2018-09-03] MEDS: ASPIRIN ENTERIC COATED 81 MG TABLET.DR. PO SCH (08:35)
[2018-09-03] MEDS: LISINOPRIL 5 MG TABLET. PO SCH (08:36)
[2018-09-03] MEDS: CLOPIDOGREL BISULFATE 75 MG TABLET PO SCH (08:36)
[2018-09-03] MEDS: CARVEDILOL 3.125 MG TABLET PO SCH ×2 (08:36→16:09)
[2018-09-03] MEDS: LACTOBACILLUS RHAMNOSUS GG 1 CAPSULE. PO SCH ×2 (08:36→20:46)
[2018-09-03] MEDS: ENOXAPARIN 40 MG/0.4 ML SYRINGE. SQ SCH (08:37)
--- NOTE | 2018-09-03 09:02 | PDOC ---
SUBJECTIVE: CC: fevers, loose stools 3 episodes of loose stools Denies chest pain, nor SOB Troponins noted OBJECTIVE: Problems: Problems Medical Problems: (1) Acute febrile illness Status: Acute (2) Elevated brain natriuretic peptide (BNP) level Status: Acute (3) Elevated troponin level Status: Acute (4) History of CVA (cerebrovascular accident) without residual deficits Status: Acute (5) Skin breakdown Status: Acute CD toxin pending Vital Signs: Vital Signs Date Time Temp Pulse Resp B/P (MAP) Pulse Ox O2 Delivery O2 Flow Rate FiO2 09/03/18 08:36 72 131/72 09/03/18 05:26 97.4 18 91 Room Air 09/02/18 20:00 2.0 I & O Intake and Output 09/03/18 07:00 Intake Total 1303 ml Output Total 850 ml Balance 453 ml Intake Oral 640 ml IV Total 663 ml Output Urine Total 850 ml # Bowel Movements 2 Labs: Laboratory Tests Test 09/01/18 09:00 09/01/18 09:27 09/01/18 14:13 09/01/18 17:20 Urine Collection Type U cath Urine Color Yellow Urine Clarity Hazy Urine pH 7.0 Urine Specific [place] 1.020 Urine Protein 100 mg/dl (NEG-TRACE) Urine Glucose (UA) Neg mg/dL (NEG) Urine Ketones (Stick) Neg mg/dL (NEG) Urine Blood Small (NEG) Urine Nitrite Neg (NEG) Urine Bilirubin Neg (NEG) Urine Urobilinogen Dipstick 0.2 mg/dL (0.2 mg/dL) Urine Leukocyte Esterase Neg (NEG) Urine RBC >40 /HPF (0-2) Urine WBC 1-4 /HPF (0-4) Urine Squamous Epithelial Cells None /LPF Urine Bacteria Few /HPF (0-FEW) White Blood Count 9.1 x10^3/uL (4.0-11.0) Red Blood Count 5.16 x10^6/uL (4.30-5.70) Hemoglobin 15.7 g/dL (13.0-17.5) Hematocrit 46.7 % (39.0-53.0) Mean Corpuscular Volume 90 fL (79-100) Mean Corpuscular Hemoglobin 30 pg (25-35) Mean Corpuscular Hemoglobin Concent 34 g/dL (31-37) Red Cell Distribution Width 14.3 % (11.5-14.5) Platelet Count 173 x10^3/uL (140-400) Neutrophils (%) (Auto) 78 % (31-73) Lymphocytes (%) (Auto) 4 % (24-48) Monocytes (%) (Auto) 6 % (0-9) Eosinophils (%) (Auto) 12 % (0-3) Basophils (%) (Auto) 0 % (0-3) Neutrophils # (Auto) 7.1 x10^3uL (1.8-7.7) Lymphocytes # (Auto) 0.3 x10^3/uL (1.0-4.8) Monocytes # (Auto) 0.5 x10^3/uL (0.0-1.1) Eosinophils # (Auto) 1.1 x10^3/uL (0.0-0.7) Basophils # (Auto) 0.0 x10^3/uL (0.0-0.2) Prothrombin Time 11.6 SEC (9.4-11.4) Prothromb Time International Ratio 1.2 (0.9-1.1) Activated Partial Thromboplast Time 32 SEC (23-33) Sodium Level 138 mmol/L (136-145) Potassium Level 3.4 mmol/L (3.5-5.1) Chloride Level 100 mmol/L (98-107) Carbon Dioxide Level 27 mmol/L (21-32) Anion Gap 11 (6-14) Blood Urea Nitrogen 17 mg/dL (8-26) Creatinine 1.0 mg/dL (0.7-1.3) Estimated GFR (Cockcroft-Gault) 74.5 BUN/Creatinine Ratio 17 (6-20) Glucose Level 120 mg/dL (70-99) Lactic Acid Level 1.6 mmol/L (0.4-2.0) Calcium Level 9.1 mg/dL (8.5-10.1) Total Bilirubin 0.7 mg/dL (0.2-1.0) Aspartate Amino Transf (AST/SGOT) 14 U/L (15-37) Alanine Aminotransferase (ALT/SGPT) 23 U/L (16-63) Alkaline Phosphatase 91 U/L (46-116) Troponin I Quantitative 0.217 ng/mL (0-0.055) 0.306 ng/mL (0-0.055) UT-Vqt-L-Type Natriuretic Peptide 1280 pg/mL (0-124) Total Protein 8.0 g/dL (6.4-8.2) Albumin 3.7 g/dL (3.4-5.0) Albumin/Globulin Ratio 0.9 (1.0-1.7) Lipase 72 U/L (73-393) Blood Gas pH 7.43 (7.35-7.46) Blood Gas PCO2 33 mmHg (35-46) Blood Gas PO2 87 mmHg (80-100) Blood Gas HCO3 22 mmol/L (21-28) Arterial Bld O2 Saturation (Calc) 97 % (92-99) FiO2 36 % Test 09/01/18 17:30 09/02/18 06:40 09/02/18 22:00 D-Dimer (Jacey) 2.11 mg/L (0.00-0.50) Troponin I Quantitative 0.248 ng/mL (0-0.055) White Blood Count 5.9 x10^3/uL (4.0-11.0) Red Blood Count 5.05 x10^6/uL (4.30-5.70) Hemoglobin 15.3 g/dL (13.0-17.5) Hematocrit 46.0 % (39.0-53.0) Mean Corpuscular Volume 91 fL (79-100) Mean Corpuscular Hemoglobin 30 pg (25-35) Mean Corpuscular Hemoglobin Concent 33 g/dL (31-37) Red Cell Distribution Width 14.5 % (11.5-14.5) Platelet Count 161 x10^3/uL (140-400) Neutrophils (%) (Auto) 80 % (31-73) Lymphocytes (%) (Auto) 7 % (24-48) Monocytes (%) (Auto) 5 % (0-9) Eosinophils (%) (Auto) 8 % (0-3) Basophils (%) (Auto) 0 % (0-3) Neutrophils # (Auto) 4.7 x10^3uL (1.8-7.7) Lymphocytes # (Auto) 0.4 x10^3/uL (1.0-4.8) Monocytes # (Auto) 0.3 x10^3/uL (0.0-1.1) Eosinophils # (Auto) 0.5 x10^3/uL (0.0-0.7) Basophils # (Auto) 0.0 x10^3/uL (0.0-0.2) Sodium Level 136 mmol/L (136-145) Potassium Level 4.0 mmol/L (3.5-5.1) Chloride Level 102 mmol/L (98-107) Carbon Dioxide Level 25 mmol/L (21-32) Anion Gap 9 (6-14) Blood Urea Nitrogen 17 mg/dL (8-26) Creatinine 1.2 mg/dL (0.7-1.3) Estimated GFR (Cockcroft-Gault) 60.4 BUN/Creatinine Ratio 14 (6-20) Glucose Level 124 mg/dL (70-99) Calcium Level 8.4 mg/dL (8.5-10.1) Total Bilirubin 1.0 mg/dL (0.2-1.0) Aspartate Amino Transf (AST/SGOT) 15 U/L (15-37) Alanine Aminotransferase (ALT/SGPT) 20 U/L (16-63) Alkaline Phosphatase 66 U/L (46-116) Total Protein 6.5 g/dL (6.4-8.2) Albumin 2.8 g/dL (3.4-5.0) Albumin/Globulin Ratio 0.8 (1.0-1.7) Triglycerides Level 56 mg/dL (0-150) Cholesterol Level 144 mg/dL (0-200) LDL Cholesterol, Calculated 101 mg/dL (0-100) VLDL Cholesterol, Calculated 11 mg/dL (0-40) Non-HDL Cholesterol Calculated 112 mg/dL (0-129) HDL Cholesterol 32 mg/dL (40-60) Cholesterol/HDL Ratio 4.0 Vancomycin Level Trough 17.0 mcg/mL (10.0-20.0) Vancomycin Last Dose Date 09/02/18 Vancomycin Last Dose Time 1100 Physical Exam: HEENT: PERRLA Neck: supple Chest: clear CV: RRR Abdomen: soft, No guarding nor rebound tenderness Ext: no edema Neuro: intact, speech fluent. ASSESSMENT: CAD Bronchitis Diarrhea COPD noncompliance of meds PLAN: We can DC Vancomycin Cont Zosyn as ordered Await CDAT, which is done at [facility]'s laboratory Cont Cardiac meds as ordered Lomotil for loose stools SOHAN REYES MD Sep 03, 2018 09:02
[2018-09-03 10:56] VITALS: BP 159/79
[2018-09-03] MEDS: DIPHENOXYLATE/ATROPINE TABLET. PO SCH ×4 (11:01→22:08)
[2018-09-03 15:37] VITALS: BP 147/83
[2018-09-03 19:01] VITALS: BP 186/77
[2018-09-03] MEDS: ATORVASTATIN CALCIUM 20 MG TABLET PO SCH (20:46)
[2018-09-03 23:19] VITALS: BP 151/67
[2018-09-04] MEDS: PIPERACILLIN/TAZOBACTAM 3.375 GM in IV NORMAL SALINE 50ML 50 ML IV SCH ×2 (01:39→07:56)
[2018-09-04] MEDS: DIPHENOXYLATE/ATROPINE TABLET. PO SCH (05:33)
[2018-09-04 06:00] VITALS: BP 149/77
[2018-09-04] MEDS: LISINOPRIL 5 MG TABLET. PO SCH (07:54)
[2018-09-04] MEDS: LACTOBACILLUS RHAMNOSUS GG 1 CAPSULE. PO SCH (07:54)
[2018-09-04] MEDS: CLOPIDOGREL BISULFATE 75 MG TABLET PO SCH (07:54)
[2018-09-04] MEDS: ASPIRIN ENTERIC COATED 81 MG TABLET.DR. PO SCH (07:54)
[2018-09-04] MEDS: CARVEDILOL 3.125 MG TABLET PO SCH (07:55)
[2018-09-04 10:12] VITALS: BP 114/69
--- NOTE | 2018-09-04 11:48 | DS ---
DATE OF DISCHARGE: 09/04/2018 ATTENDING PHYSICIAN: Hung Martin MD FINAL DISCHARGE DIAGNOSES: 1. Acute febrile illness; cultures were negative. 2. Coronary artery disease. The patient refused further cardiac workup. 3. COPD. 4. Mild diarrhea, resolving. 5. Urinary tract infection. 6. Urinary retention. 7. Coronary artery disease with previous PCI and stent deployment. 8. Sleep apnea. 9. Noncompliance of meds. HISTORY AND PHYSICAL: The patient is a 68-year-old gentleman admitted by his family. He had febrile illness. He has urinary retention. He usually self-catheterizes, but he could not get the catheter in. As part of the workup, he had a troponin elevated at 0.217. He denied any chest pain. He was admitted for further treatment and evaluation. He has also had a previous stroke. PHYSICAL EXAMINATION: Please see the dictated note. PERTINENT LABORATORY AND X-RAY STUDIES: His hemoglobin was 15.7 g/dL with white count of 9100. Chemistry panel showed a BNP of 1280. Troponins peaked at 0.306, repeated was down to 0.248. Nonfasting blood sugar 124. Creatinine 1.2 mg/dL. Electrolytes within normal range. COURSE IN THE HOSPITAL: The patient had a chest x-ray as noted. Echocardiogram showed an ejection fraction of 55%; a limited study due to the patient's habitus. The patient was seen in consultation by Cardiology Services. Further workup and catheterization was refused. They recommended addition of Plavix with aspirin. He cannot afford Plavix at this time, so we compromised and he was agreeable to take aspirin at the time of discharge. Blood cultures were negative, 2 sets drawn on admission were negative at 72 hours. I do not have a urine culture available as this was not sent. Clinically, he did well. He had 4 days of IV Zosyn. He had empiric vancomycin, which was stopped. On the 4th hospital day, his vital signs were stable. He wants the Whitting[place] catheter to be left in. I got him a leg bag. He will follow up in 1 week with his primary care physician. In addition, I wrote scripts for 7 more days of Augmentin 875 one b.i.d. He should continue his aspirin enteric-coated 325 daily along with Coreg 3.125 mg b.i.d. and Zestril 5 mg p.o. daily. Also, recommended was the Lipitor. I wrote him a script for these meds; whether or not he will get them filled remains to be seen. The patient was then discharged from our hospital in a stable condition with explicit instructions with followup care. He had the indwelling Whittington catheter with a leg bag. TOTAL DISCHARGE TIME SPENT: 39 minutes. SOHAN REYES MD DR: DAVID/edwin JOB#: [id number] / [id number] HUNG Casillas MD
--- NOTE | 2018-09-06 06:49 | EKG ---
[address] [address] Test Date: 2018-09-02 Test Time: 21:05:49 Pat Name: ROMÁN ARROYO Department: Room: 121 A Gender: M Director Energy: : 1950 Requested By: ROYAL DELUNA Order Number: [id number] Reading MD: Measurements Intervals [place] Rate: 76 P: DC: QRS: -71 QRSD: 98 T: 13 QT: 424 QTc: 482 Interpretive Statements IRREGULAR RHYTHM, NO P-WAVE FOUND VENTRICULAR PREMATURE COMPLEX(ES) ABNORMAL LEFT AXIS DEVIATION R-S TRANSITION ZONE IN V LEADS DISPLACED TO THE RIGHT CONSIDER LEFT VENTRICULAR HYPERTROPHY QRS(T) CONTOUR ABNORMALITY CONSISTENT WITH INFERIOR INFARCT PROBABLY OLD ABNORMAL ECG RI6.02 No previous ECG available for comparison
--- NOTE | 2018-09-06 07:32 | EKG ---
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
== END 2018-09-04 13:17 | disposition home or self-care (01) | DRG 872 ==
LOC: ER 08:49 → 1 SOUTH 10:54
PROVIDERS: ADMIT Internal Medicine; ATTEND Internal Medicine
DX: A41.9 Sepsis, unspecified organism (principal); N39.0 Urinary tract infection, site not specified; I25.10 Atherosclerotic heart disease of native coronary artery without angina pectoris; E78.5 Hyperlipidemia, unspecified; G47.33 Obstructive sleep apnea (adult) (pediatric); I10 Essential (primary) hypertension; J44.9 Chronic obstructive pulmonary disease, unspecified; N40.0 Benign prostatic hyperplasia without lower urinary tract symptoms; Z79.82 Long term (current) use of aspirin; Z79.899 Other long term (current) drug therapy; Z82.49 Family history of ischemic heart disease and other diseases of the circulatory system; Z86.73 Personal history of transient ischemic attack (TIA), and cerebral infarction without residual deficits; Z87.891 Personal history of nicotine dependence; Z91.14 Patient's other noncompliance with medication regimen; Z95.5 Presence of coronary angioplasty implant and graft; R19.7 Diarrhea, unspecified
CPT/HCPCS: 36415; 51702; 71045; 80053; 80061; 80202; 81001; 82803; 83605; 83690; 83880; 84484; 85025; 85379; 85610; 85730; 87040; 87493; 93005; 93306; 96365; 96366; 96367; J1650; J2543; J3370; J7040; 99285-25; J7030

== ENCOUNTER 2018-09-29 06:04 | Emergency (ER) | payer MEDICARE ==
[~2018-09-29] VITALS: Ht 167.6 cm; Wt 120.7 kg
[~2018-09-29 06:04] MED LIST changes: +ASPI-612 PO; +ATOR40TA59 PO; +CARV3.1230 PO; +LISI-338 PO
--- NOTE | 2018-09-29 06:57 | PHYS DOC ---
Past History Past Medical History: CAD, COPD, CVA, High Cholesterol, Renal Disease, Other Past Surgical History: Other Smoking: Quit Greater Than 1 Year Alcohol Use: None Drug Use: None Adult General Chief Complaint Chief Complaint: URINE CATHETER PROBLEM HPI HPI Patient is a 68-year-old male who presents from home via EMS with report of Whittington catheter obstruction. EMS indicates that family had indicated that they had tried to flush the catheter without success. They state that family indicates that patient has not had a normal urinary flow since yesterday. EMS also indicates that her blood pressure had been quite elevated while in route but patient does indicate that he has a lot of discomfort associated with not being able to pass urine. He denies any chest pain or shortness of breath.[] Review of Systems Review of Systems Constitutional: Denies fever or chills [] Respiratory: Denies cough or shortness of breath [] Cardiovascular: No additional information not addressed in HPI [] GI: Admits to suprapubic abdominal discomfort without vomiting or diarrhea [] : Positive urinary retention[] Neurologic: Positive right sided hemiparesis associated with previous stroke[] All other systems were reviewed and found to be within normal limits, except as documented in this note. Allergies Allergies Allergies Coded Allergies Type Severity Reaction Last Updated Verified pseudoephedrine Adverse Reaction Intermediate 09/29/18 Yes Physical Exam Physical Exam Constitutional: Well developed, well nourished, no acute distress, non-toxic appearance. [] HENT: Normocephalic, atraumatic, bilateral external ears normal, oropharynx moist, no oral exudates, nose normal. [] Eyes: PERRLA, EOMI, conjunctiva normal, no discharge. [] Neck: Normal range of motion, no tenderness, supple. [] Cardiovascular:Heart rate regular rhythm, no murmur [] Lungs & Thorax: Bilateral breath sounds clear to auscultation [] Abdomen: Bowel sounds normal, soft, with suprapubic tenderness. [] Skin: Warm, dry. [] Extremities: No tenderness, no cyanosis, no clubbing, with lower extremity edema. [] Neurologic: Alert and oriented X 3, with a right sided hemiparesis noted. [] EKG EKG [] Radiology/Procedures Radiology/Procedures [] Course & Med Decision Making Course & Med Decision Making Pertinent Labs and Imaging studies reviewed. (See chart for details) [] Dragon Disclaimer Dragon Disclaimer This electronic medical record was generated, in whole or in part, using a voice recognition dictation system. Departure Departure: Impression: Primary Impression: UTI (urinary tract infection) Additional Impression: Obstructed Whittington catheter Disposition: HOME, SELF-CARE Condition: STABLE Referrals: PCP,NO (PCP) Patient Instructions: Urinary Tract Infection Scripts Sulfamethoxazole/Trimethoprim (BACTRIM DS TABLET) 1 Each Tablet 1 TAB PO BID for infection, #20 TAB Prov: CISCO BOURGEOIS Jr., DO 09/29/18 Problem Qualifiers Primary Impression: UTI (urinary tract infection) Urinary tract infection type: site unspecified Hematuria presence: with hematuria Qualified Codes: N39.0 - Urinary tract infection, site not specified; R31.9 - Hematuria, unspecified Additional Impression: Obstructed Whitting[place] catheter Encounter type: initial encounter Qualified Codes: T83.091A - Other mechanical complication of indwelling urethral catheter, initial encounter CISCO BOURGEOIS Jr., DO Sep 29, 2018 06:57
[2018-09-29 07:14] LABS: AMORPHOUS SEDIMENT,UR PRESENT /HPF; BACTERIA,URINE FEW /HPF (0-FEW); BILIRUBIN,URINE NEG (NEG); CLARITY,URINE CLOUDY; COLOR,URINE BROWN; GLUCOSE,URINE NEG (NEG); NITRITE,URINE NEG (NEG); RBC,URINE >40 /HPF (0-2); SQUAMOUS EPITHELIAL CELL,UR OCC /LPF; UROBILINOGEN,URINE 0.2 mg/dL (0.2 mg/dL); WBC,URINE 20-40 /HPF (0-4)
[2018-09-29 07:15] LABS: BASO # 0.1 x10^3/uL (0.0-0.2); BASO % 1 % (0-3); EOS # 0.5 x10^3/uL (0.0-0.7); EOS % 8 % (0-3); HEMATOCRIT 44.9 % (39.0-53.0); HEMOGLOBIN 14.5 g/dL (13.0-17.5); LYMPH # 0.9 x10^3/uL (1.0-4.8); LYMPH % 14 % (24-48); MEAN CORPUSCULAR HEMOGLOBIN 30 pg (25-35); MEAN CORPUSCULAR HGB CONC 32 g/dL (31-37); MEAN CORPUSCULAR VOLUME 93 fL (79-100); MONO # 0.4 x10^3/uL (0.0-1.1); MONO % 6 % (0-9); NEUT # 4.5 x10^3uL (1.8-7.7); NEUT % 71 % (31-73); PLATELET COUNT 178 x10^3/uL (140-400); RED BLOOD COUNT 4.84 x10^6/uL (4.30-5.70); RED CELL DISTRIBUTION WIDTH 14.6 % (11.5-14.5); WHITE BLOOD COUNT 6.4 x10^3/uL (4.0-11.0)
[2018-09-29 07:35] LABS: ALBUMIN 3.5 g/dL (3.4-5.0); ALBUMIN/GLOBULIN RATIO 0.9 (1.0-1.7); CALCIUM 9.1 mg/dL (8.5-10.1); CREATININE 0.8 mg/dL (0.7-1.3); GFR 96.4; POTASSIUM 3.4 mmol/L (3.5-5.1); TOTAL BILIRUBIN 0.6 mg/dL (0.2-1.0); TOTAL PROTEIN 7.5 g/dL (6.4-8.2)
[2018-09-29] MEDS ORDERED: IV NORMAL SALINE 50ML 50 ML ONE (07:42)
[2018-09-29] MEDS ORDERED: cefTRIAXone SODIUM 1 GM VIAL ONE (07:42)
[2018-09-29 08:07] VITALS: BP 184/114
--- NOTE | 2018-09-29 08:07 | RAD ---
CHEST AP ONLY Clinical Indication: Low oxygen saturation Comparison: 09/01/2018 portable chest x-ray exam. Findings: Portable upright frontal view chest was obtained. The cardiomediastinal silhouette is normal. Lungs are clear. There is no pneumothorax. No pleural effusion is appreciated. No acute bone abnormality. IMPRESSION: No acute cardiopulmonary process. Electronically signed by: Tony Jaffe MD (09/29/2018 8:04 AM) [facility]
[2018-09-29] MEDS ORDERED: SULF1TAB24 PO (08:11)
== END 2018-09-29 15:15 | disposition home or self-care (01) ==
LOC: ER 06:04
DX: T83.091A Other mechanical complication of indwelling urethral catheter, initial encounter (principal); N39.0 Urinary tract infection, site not specified; R31.9 Hematuria, unspecified; I25.10 Atherosclerotic heart disease of native coronary artery without angina pectoris; J44.9 Chronic obstructive pulmonary disease, unspecified; E78.00 Pure hypercholesterolemia, unspecified; Z86.73 Personal history of transient ischemic attack (TIA), and cerebral infarction without residual deficits; Z87.891 Personal history of nicotine dependence; Z88.8 Allergy status to other drugs, medicaments and biological substances
CPT/HCPCS: 36415; 51702; 71045; 80053; 81001; 83880; 85025; 87040; 87086; 87205; 96365; 99285; J0696